=== PATIENT | female | born 1985 | race Caucasian/White ===

== ENCOUNTER 2019-03-07 17:34 | Inpatient (IN) | payer MEDICAID ==
[~2019-03-07] VITALS: Ht 160 cm; Wt 90.9 kg
[2019-03-07 18:25] LABS: HEMOGLOBIN 10.3 g/dL (12-16); MCH 28.9 pg (26.0-34.0); MCHC 32.2 g/dL (31.0-37.0); MCV 89.6 fL (80.0-100.0); MEAN PLATELET VOLUME 10.9 fL (7.4-10.4); RBC 3.57 10x6/uL (4.00-5.40); RDW 14.5 % (11.5-14.5); WBC 14.9 10x3/uL (4.8-10.8)
[2019-03-07 18:33] LABS: APPEARANCE CLEAR (CLEAR); BILIRUBIN NEGATIVE (NEGATIVE); COLOR YELLOW (YELLOW); GLUCOSE NEGATIVE (NEGATIVE); KETONE NEGATIVE (NEGATIVE); NITRITE NEGATIVE (NEGATIVE); PROTEIN NEGATIVE (NEGATIVE); UROBILINOGEN NORMAL (NORMAL)
[2019-03-07 18:36] LABS: UDS - AMPHET NEGATIVE QUAL (NEGATIVE); UDS - BARB NEGATIVE QUAL (NEGATIVE); UDS - BENZO NEGATIVE QUAL (NEGATIVE); UDS - COCAINE NEGATIVE QUAL (NEGATIVE); UDS - OPIATE NEGATIVE QUAL (NEGATIVE); UDS - PCP NEGATIVE QUAL (NEGATIVE); UDS - THC NEGATIVE QUAL (NEGATIVE)
[2019-03-07 20:29] VITALS: BP 133/88; Ht 160 cm; Wt 90.9 kg
[2019-03-08 07:08] VITALS: BP 116/56
--- NOTE | 2019-03-08 07:08 | NUR ---
RECEIVED PT SITTING UP IN BED. VISITS WITH FAMILY. VSS. HRRR WITHOUT AUDIBLE MURMUR. BBS CLEAR. BS X 4. ABDOMEN SOFT/NON-DISTENDED. FUNDUS FIRM AT U/U. RUBRA LOCHIA MOD AMT. NO CLOTS EXPRESSED. NEG HOMANS' SIGN. PPP. MILD NON-PITTING EDEMA NOTED TO BLE. EPIDURAL CATH DC'D WITH BLACK TIP INTACT. PT STATES BOTH LEGS CONTINUE NUMB ABOVE KNEES. PIV CONVERTED TO SALINE LOCK. SITE CLEAR. PT DENIES PAIN. PT INSTRUCTED TO NOTIFY NURSE OF NEED TO VOID AND NOT GET OUT OF BED WITHOUT ASSISTANCE. SR UP X 2. CALL LIGHT IN REACH.
--- NOTE | 2019-03-08 09:20 | NUR ---
PT STATES LEGS FEEL NORMAL. PT OOB AND AMB WITH STEADY GAIT TO BR. VOIDS LARGE AMT OF BLOOD-TINGED URINE. PERICARE DONE PER PT. PANTIES AND PADS ON. PT TRANSFERED VIA AMBULATORY TO ROOM 1273. PT TO BED. ORIENTED TO ROOM, BED, AND CALL LIGHT. SR UP X 2. CALL LIGHT IN REACH.
--- NOTE | 2019-03-08 10:55 | NUR ---
PT SITTING UP IN BED. VISITS WITH SO. DENIES NEEDS OR C/O.
--- NOTE | 2019-03-08 12:15 | NUR ---
PT VS NOTED. FUNDUS FIRM AT U/1. RUBRA LOCHIA MOD AMT. NO CLOTS NOTED. PT OOB AND AMB TO BR. VOIDS 300 ML OF BLOOD-TINGED URINE. PERICARE DONE PER PT. PT AMB BACK TO BED. C/O FEELING COLD. WARM BLANKET PROVIDED. PT DENIES PAIN.
[2019-03-08 12:19] VITALS: BP 132/63
--- NOTE | 2019-03-08 13:50 | NUR ---
PT SITTING UP IN BED. VISITS WITH FAMILY. DENIES NEEDS OR C/O.
--- NOTE | 2019-03-08 15:03 | NUR ---
PT LYING TO RIGHT SIDE IN BED. EYES CLOSED. RESP NON-LABORED. PT NOT DISTURBED TO ALLOW FOR REST. SR UP X 2. CALL LIGHT IN REACH.
[2019-03-08 15:54] VITALS: BP 96/55
--- NOTE | 2019-03-08 16:01 | NUR ---
PT IN SEMI-CAMPA'S POSITION. WATCHING TV. VSS. FUNDUS FIRM AT U/1. RUBRA LOCHIA SMALL AMT. PT DENIES PAIN. 600 ML OF BLOOD-TINGED URINE EMPTIED FROM SPECIPAN. PT DENIES C/O OR NEEDS.
[2019-03-08 17:00] LABS: HIV 1 & 2- RAPID SCREEN NEGATIVE (NEGATIVE)
--- NOTE | 2019-03-08 19:11 | NUR ---
BEDSIDE REPORT REC'D FROM Vicki LANE RN. PT REC'D SITTING IN HIGH FOWLERS POSITION WITH IN ARMS. REQUEST MORE FORMULA, NBN NOTIFIED. C/O ABD CRAMPING 11/04, INTERVENTIONS DISCUSSED, REQUESTS TORADOL. BED IN LOW POSITION WITH UPPER SIDE RAILS RAISED X2. CALL LIGHT AND PHONE WITHIN REACH. WILL CONTINUE TO MONITOR AND ASSIST PRN.
[2019-03-08 19:33] VITALS: BP 120/72
--- NOTE | 2019-03-08 19:33 | NUR ---
SHIFT ASSESSMENT COMPLETED PER FLOWSHEET. FUNDUS FIRM, MIDLINE AND U2 WITH SCANT RUBRA LOCHIA, NO CLOTS NOTED. C/O ABD CRAMPING /10, TORADOL GIVEN PER ORDER AND PT REQUEST. EDUCATED ON MED AND POSSIBLE SIDE EFFECTS, VERBALIZES UNDERSTANDING. REPORTS THAT SHE IS PASSING FLATUS AND VOIDING WITHOUT DIFFICULTY. INFANT IN OPEN CRIB AT BEDSIDE. DENIES ADDITIONAL NEEDS. BED IN LOW POSITION WITH UPPER SIDE RAILS RAISED X2. CALL LIGHT AND PHONE WITHIN REACH.
--- NOTE | 2019-03-08 20:10 | NUR ---
PAIN REASSESSMENT COMPLETED, DENIES PAIN. LINENS PROVIDED FOR SIGNIFICANT OTHER PER REQUEST. DENIES ADDITIONAL NEEDS. INFANT IN ARMS BOTTLE FEEDING. BED IN LOW POSITION WITH UPPER SIDE RAILS RAISED X2. CALL LIGHT AND PHONE WITHIN REACH. WILL CONTINUE TO MONITOR.
--- NOTE | 2019-03-08 21:19 | NUR ---
RT FA PIV REMOVED PER PT REQUEST. VERBALIZES AND AGREES THAT IF PIV ACCESS IS NEEDED RESTART WOULD HAVE TO BE DONE. UP TO SHOWER, TOWELS, SOAP, WASH CLOTHES, DEODORANT, TOOTHPASTE, AND MOUTH WASH PROVIDED. LINENS CHANGED. DENIES ADDITIONAL NEEDS. SIGNIFICANT OTHER IN ROOM AND STATES THAT HE WILL REMAIN IN ROOM WITH INFANT WHILE PT SHOWERS. BOTH VERBALIZE USE OF CALL LIGHT IN ROOM AND BATHROOM. DENIES NEEDS AT THIS TIME. RESTING QUIETLY IN OPEN CRIB. WILL CONTINUE TO MONITOR.
--- NOTE | 2019-03-08 22:41 | NUR ---
SCHEDULED TYLENOL 1000MG GIVEN PER ORDER. STATED PAIN 2/10 TO ABD. DENIES ANY OTHER NEEDS
--- NOTE | 2019-03-08 23:19 | NUR ---
WALKING IN HALLWAY. ASKED IF SHE COULD GO SMOKE. INFORMED PT. THAT MD DOES NOT WANT PATIENTS LEAVING UNIT TO SMOKE. PT. STATES UNDERSTANDING. STATES SHE IS TRYING TO QUIT. STATES BABY WILL PROBABLY NOT BE DISCHARGED UNTIL MONDAY. INFORMED PT. THAT SHE POSSIBLY COULD BE DISCHARGED AND CHANGED TO ROOMING IN STATUS IF SHE DESIRED AND TO DISCUSS WITH MD. GAIT STEADY. STATES SHE IS TIRED OF JUST LAYING AROUND.
--- NOTE | 2019-03-09 00:54 | NUR ---
SITTING ON EDGE OF BED PLAYING GAME ON CELL PHONE. DENIES PAIN. DISCUSSED NICOTINE PATCH WITH PT, REFUSES, STATES THAT SHE IS TRYING TO QUIT SMOKING. TOBACCO CESSATION AND QUITLINE INFO DISCUSSED WITH PT, VERBALIZES UNDERSTANDING. INFANT IN OPEN CRIB AT BEDSIDE. DENIES NEEDS. BED IN LOW POSITION WITH UPPER SIDE RAILS RAISED X2. CALL LIGHT AND PHONE WITHIN REACH. WILL CONTINUE TO MONITOR. REPORTS THAT SHE IS INTERESTED IN ROOMING IN TOMORROW, ENCOURAGED TO DISCUSS WITH .
--- NOTE | 2019-03-09 02:21 | NUR ---
ROUNDS MADE. INFANT RESTING QUIETLY IN OPEN CRIB. PT SITTING UP IN BED COLORING. DENIES PAIN. ICE WATER PROVIDED. DENIES ADDITIONAL NEEDS. SIGNIFICANT OTHER RESTING ON COUCH AT BEDSIDE. BED IN LOW POSITION WITH UPPER SIDE RAILS RAISED X2. CALL LIGHT AND PHONE WITHIN REACH.
--- NOTE | 2019-03-09 04:25 | NUR ---
SITTING UP IN BED COLORING. RESTING IN OPEN CRIB. SCHEDULED TYLENOL OFFERED AND REFUSED. STATES "I'M NOT HURTING. IF I NEED IT LATER CAN I GET?" PT INSTRUCTED THAT IF SHE NEEDED MED TO ASK FOR IT AND IT COULD BE TAKEN WHEN SHE NEEDED AND WAS AVAILABLE TO BE TAKEN Q 6 HOURS, VERBALIZES UNDERSTANDING. DENIES NEEDS. SIGNIFICANT OTHER RESTING ON COUCH. BED IN LOW POSITION WITH UPPER SIDE RAILS RAISED X2. CALL LIGHT AND PHONE WITHIN REACH. WILL CONTINUE TO MONITOR.
--- NOTE | 2019-03-09 05:46 | NUR ---
RESTING QUIETLY WITH EYE CLOSED LAYING ON LEFT SIDE. RESPIRATIONS REGULAR AND UNLABORED, NO S/S OF DISTRESS NOTE. SIGNIFICANT OTHER RESTING ON COUCH. IN NBN. BED IN LOW POSITION WITH UPPER SIDE RAILS RAISED X2. CALL LIGHT AND PHONE WITHIN REACH. WILL CONTINUE TO MONITOR.
[2019-03-09 06:09] LABS: RAPID PLASMA REAGIN Non Reactive (Non Reactive)
[2019-03-09 06:41] LABS: BASOPHILS 0.1 % (0-2); EOSINOPHILS 2.4 % (0-7); HEMATOCRIT 30.5 % (36.0-48.0); HEMOGLOBIN 9.7 g/dL (12-16); IMMATURE GRANULOCYTES 0.4 % (0-5); LYMPHOCYTES 17.6 % (15-50); MCH 28.6 pg (26.0-34.0); MCHC 31.8 g/dL (31.0-37.0); MEAN PLATELET VOLUME 10.9 fL (7.4-10.4); NEUTROPHILS 73.5 % (40-80); PLATELET COUNT 225 10x3/uL (130-400); RBC 3.39 10x6/uL (4.00-5.40); RDW 14.6 % (11.5-14.5); WBC 14.9 10x3/uL (4.8-10.8)
[2019-03-09 07:03] VITALS: BP 127/70
--- NOTE | 2019-03-09 07:05 | NUR ---
PT AAOX4, VSS, AFEBRILE, SITTING UP IN BED, ACTIVE, RATES PAIN A 1/10 MILD CRAMPING INTERMITTENTLY, HEART RRR, LUNGS CTAB, ABD SOFT AND MILDLY TENDER, FUNDUS FIRM AT U/2 AND MIDLINE, +FLATUS, NO BM YET, VOIDING WITHOUT DIFFICULTY, MALDONADO FREELY, NEGATIVE KAMINI'S SIGN, PEDAL PULSES 2+/= BILATERALLY, CALL LIGHT IN EASY REACH, BED IN LOW POSITION, SIGNIFICANT OTHER AT BS, IN ROLLING CRIB ALSO NAD. WILL MONITOR.
[2019-03-09 08:10] LABS: HEPATITIS C ANTIBODY 0.2 S/CO RAT (0.0-0.9)
--- NOTE | 2019-03-09 08:30 | NUR ---
ROUNDS COMPLETED, NO DISTRESS NOTED, CONTINUE TO MONITOR.
--- NOTE | 2019-03-09 09:05 | NUR ---
PT DENIES NEEDS OR CONCERNS, RESP EVEN AND UNLABORED, AMBULATORY IN ROOM. CALL LIGHT AT BS.
--- NOTE | 2019-03-09 10:56 | NUR ---
PT AMBULATORY IN HALLS. PT AGREES TO TYLENOL PER MD ORDERS. ADMINISTERED WITH SIPS WATER, DISCUSSED TDAP VACCINE-REVIEWED HANDOUT, AGREES TO ADMINISTRATION AND GIVEN IN LEFT DELTOID WITH BANDAID APPLIED OVER INJECTION SITE. CUP OF WATER PROVIDED PER REQUEST. CALL LIGHT IN EASY REACH. NAD NOTED.
--- NOTE | 2019-03-09 11:48 | NUR ---
ROUNDS COMPLETED, DENIES NEEDS OR CONCERNS, CALL LIGHT IN EASY REACH, RESP EVEN AND UNLABORED, CONTINUE TO MONITOR.
[2019-03-09 12:08] LABS: RUBELLA IGG 1.16 index (Immune >0.99)
--- NOTE | 2019-03-09 12:30 | NUR ---
CASE MANAGEMENT COMPLETED CONSULT, NO NEW ORDERS/RECOMMENDATIONS, STATES THAT PT TOLD HER ALL RESOURCES IN PLACE TO MANAGE AT HOME.
--- NOTE | 2019-03-09 13:11 | MORECARE ---
CASE MANAGEMENT DISCHARGE SUMMARY PATIENT: BRIAN MCMAHON UNIT: [id number] ADM DATE: 03/07/19 AGE: 33 : 89 SEX: F ROOM/BED: D.1273 AUTHOR: DEMETRI ESCOBEDO PHYSICIAN: REFERRING PHYSICIAN: LINDSAY LOPEZ MD DATE OF SERVICE: 03/09/19 Discharge Plan Patient Name: BRIAN MCMAHON Facility: [facility]:[place] : 1985 Planned Disposition: Home Anticipated Discharge Date: 03/09/19 Discharge Date: Expected LOS: 2 Initial Reviewer: [email or web address] Initial Review Date: 03/07/2019 Generated: 03/09/19 2:11 pm Patient Name: BRIAN MCMAHON Page [id number] at 1311 All edits/amendments must be made on the electronic document DICTATION DATE: 03/09/19 1310 SHACTOR: MARIANA 03/09/19 1310 RPT#: [id number] DC DATE: STATUS: ADM IN [facility] [address] [place] [address] END OF REPORT
--- NOTE | 2019-03-09 13:15 | NUR ---
DISCHARGE INSTRUCTIONS REVIEWED WITH PT, COPIES PROVIDED FOR REFERRAL, TOBACCO QUIT LINE INFORMATION PROVIDED ALONG WITH CESSATION EDUCATION MATERIALS, CARE INSTRUCTIONS, IBUPROFEN 800MG TAB PRESCRIPTION-HARD COPY, AND SIGNS AND SYMPTOMS PAGE/MAGNET. PT STATES UNDERSTANDING OF ALL INSTRUCTIONS GIVEN. PERSONAL BELONGINGS, PT, AND TRANSFERRED TO ROOM 1221-A TO ROOMING IN STATUS AFTER PAPERWORK COMPLETED. PT DOES EXPRESS UNDERSTANDING THAT SHE OR FOB MUST STAY IN HOSPITAL AT ALL TIMES TO CARE FOR .
--- NOTE | 2019-03-09 13:18 | MORECARE ---
CASE MANAGEMENT DISCHARGE SUMMARY PATIENT: BRIAN MCMAHON UNIT: [id number] ADM DATE: 03/07/19 AGE: 33 : 89 SEX: F ROOM/BED: D.1273 AUTHOR: DEMETRI ESCOBEDO PHYSICIAN: REFERRING PHYSICIAN: LINDSAY LOPEZ MD DATE OF SERVICE: 03/09/19 Discharge Plan Patient Name: BRIAN MCMAHON [facility] [facility] 1985 Planned Disposition: Home Anticipated Discharge Date: 03/09/19 Discharge Date: Expected LOS: 2 Initial Reviewer: [email or web address] Initial Review Date: 03/07/2019 Generated: 03/09/19 2:18 pm DCPIA - Discharge Planning Initial Assessment Updated by [email or web address]: Neela Negro on 03/09/19 1:13 pm * Is the patient Alert and Oriented? Yes * How many steps to enter\exit or inside your home? 3 w/ rail * PCP NO PCP * Pharmacy [facility] [place] * Preadmission Environment Home with Family * ADLs Independent * Equipment None * Other Equipment N/A * List name and contact numbers for known caregivers / representatives who currently or will assist patient after discharge: BONNIE MCMAHON - [facility]- [phone] * Verbal permission to speak to the caregivers and representatives has been obtained from the patient. No * Community resources currently utilized None * Please name any agencies selected above. DENIES ANY COMMUNITY RESOURCES * Additional services required to return to the preadmission environment? No * Can the patient safely return to the preadmission environment? Yes * Has this patient been hospitalized within the prior 30 days at any hospital? No Last DP export: 03/09/19 12:11 p Patient Name: BRIAN MCMAHON Page [id number] at 1318 All edits/amendments must be made on the electronic document DICTATION DATE: 03/09/191316 CONCRETE PUMP OPERATOR: MARIANA 03/09/191316 RPT#: [id number] DC DATE: STATUS: ADM IN [facility] [address] [place] [address] END OF REPORT
--- NOTE | 2019-03-09 13:40 | MORECARE ---
CASE MANAGEMENT DISCHARGE SUMMARY PATIENT: BRIAN MCMAHON UNIT: [id number] ADM DATE: 03/07/19 AGE: 33 : 89 SEX: F ROOM/BED: D.1273 AUTHOR: FANNY,DOC PHYSICIAN: REFERRING PHYSICIAN: LINDSAY LOPEZ MD DATE OF SERVICE: 03/09/19 Discharge Plan Patient Name: BRIAN MCMAHON Facility: [facility]:[place] : 1985 Planned Disposition: Home Anticipated Discharge Date: 03/09/19 Discharge Date: 03/09/2019 Expected LOS: 2 Initial Reviewer: [email or web address] Initial Review Date: 03/07/2019 Generated: 03/09/19 2:39 pm Comments DCP- Discharge Planning Updated by [email or web address]: Neela Negro on 03/09/19 12:[address] CASE MANGEMENT CONSULT ORDERED 03/08/19 EARLY AM. CM RECEIVED TELEPHONE CALL PATIENT HAD NOT BEEN SEEN BY THIS AM. CM WENT TO VISIT WITH THE MOM IN THE ROOM. A RAND TACKER WAS AT THE BEDSIDE. INFANT WAS ALSO AT THE BEDSIDE. THE PATIENT GAVE THE STUDENT PERMISSION TO STAY DURING THE ASSESSMENT. CM EXPLAINED MY ROLE AND THE REASON FOR THE VISIT. SHE GAVE PERMISSION TO PROCEED WITH ASSESSMENT. THE PATIENT IS DISCHARGED TODAY. THE BABY WILL BE STAYING UNTIL TOMORROW. THE MOTHER STATED YES TO QUESTION IF SHE WAS ROOMING IN. SHE IS WITH A FOUR YEAR OLD DAUGHTER. SHE STATES THE DAUGHTER IS HAPPY ABOUT HER BABY BROTHER. SHE STATES SHE WILL BE ABLE TO GET THE NECESSARY SUPPLIES. HER SISTER IN LAW HAS 2 BOYS AND SHE WILL BE ASSISTING W/ SUPPLIES AND CLOTHING. SHE STATES HER MOTHER IN LAW IS ALSO VERY SUPPORTIVE AND WILL HELP NEEDED. THE PATIENT WILL BE APPLYING FOR WIC. CM QUESTIONED WHY SHE HAD NOT SOUGHT MEDICAL CARE PRIOR TO DELIVERY. SHE STATED SHE HAD BEEN IN [place] WITH HER MOTHER AND JUST RETURNED RECENTLY. THEN SHE STATED SHE RETURNED ON MONDAY. STATED SHE HAD A MENSES UNTIL JANUARY. STATED SHE THOUGHT SHE WAS LESS THAN SHE WAS. WAS LIGHTED HEARTED. NO STRESS OR DEPRESSIVE SYMPTOMS NOTED BY CM DURING THE INTERVIEW. SHE STATES SHE WILL HAVE TRANSPORTATION FOR HER AND THE BABY'S APPOINTMENTS. HER MOTHER IN LAW OR SISTER IN LAW WILL BE PROVIDING TRANSPORTATION TO HOME TODAY. DENIES ANY NEEDS FOR SUPPLIES, EQUIPMENT OR CLOTHING. CM ADVISED CASE MANGEMENT IS AVAILABLE SHOULD ANY CONCERN OR NEED SHOULD ARISE. CM SPOKE WITH THE L&D NURSES AND THE NURSERY NURSE. DCPIA - Discharge Planning Initial Assessment Updated by [id number]: Neeal Negro on 03/09/19 1:13 pm * Is the patient Alert and Oriented? Yes * How many steps to enter\exit or inside your home? 3 w/ rail * PCP NO PCP * [facility] [place] * Preadmission Environment Home with Family * ADLs Independent * Equipment None * Other Equipment N/A * List name and contact numbers for known caregivers / representatives who currently or will assist patient after discharge: BONNIE MCMAHON - - [phone] * Verbal permission to speak to the caregivers and representatives has been obtained from the patient. No * Community resources currently utilized None * Please name any agencies selected above. DENIES ANY COMMUNITY RESOURCES * Additional services required to return to the preadmission environment? No * Can the patient safely return to the preadmission environment? Yes * Has this patient been hospitalized within the prior 30 days at any hospital? No Last DP export: 03/09/19 12:18 p Patient Name: BRIAN MCMAHON Page [id number] at 1340 All edits/amendments must be made on the electronic document DICTATION DATE: 03/09/191338 WEIGHT INSPECTOR: MARIANA 03/09/191338 RPT#: [id number] DC DATE:03/09/19 STATUS: DIS IN [facility] [address] [place] [address] END OF REPORT
--- NOTE | 2019-03-11 13:03 | MORECARE ---
CASE MANAGEMENT DISCHARGE SUMMARY PATIENT: BRIAN MCMAHON UNIT: [id number] ADM DATE: 03/07/19 AGE: 33 : 89 SEX: F ROOM/BED: D.1273 AUTHOR: FANNY,DOC PHYSICIAN: REFERRING PHYSICIAN: LINDSAY LOPEZ MD DATE OF SERVICE: 03/11/19 Discharge Plan Patient Name: BRIAN MCMAHON Facility: [facility]:[place] : 1985 Planned Disposition: Home Anticipated Discharge Date: 03/09/19 Discharge Date: 03/09/2019 Expected LOS: 2 Initial Reviewer: [email or web address] Initial Review Date: 03/07/2019 Generated: 03/11/19 2:02 pm Comments DCP- Discharge Planning Updated by [email or web address]: Neela Negro on 03/09/19 12:[address] CASE MANGEMENT CONSULT ORDERED 03/08/19 EARLY AM. CM RECEIVED TELEPHONE CALL PATIENT HAD NOT BEEN SEEN BY THIS AM. CM WENT TO VISIT WITH THE MOM IN THE ROOM. A FABRICATOR [employer]S WAS AT THE BEDSIDE. INFANT WAS ALSO AT THE BEDSIDE. THE PATIENT GAVE THE STUDENT PERMISSION TO STAY DURING THE ASSESSMENT. CM EXPLAINED MY ROLE AND THE REASON FOR THE VISIT. SHE GAVE PERMISSION TO PROCEED WITH ASSESSMENT. THE PATIENT IS DISCHARGED TODAY. THE BABY WILL BE STAYING UNTIL TOMORROW. THE MOTHER STATED YES TO QUESTION IF SHE WAS ROOMING IN. SHE IS WITH A FOUR YEAR OLD DAUGHTER. SHE STATES THE DAUGHTER IS HAPPY ABOUT HER BABY BROTHER. SHE STATES SHE WILL BE ABLE TO GET THE NECESSARY SUPPLIES. HER SISTER IN LAW HAS 2 BOYS AND SHE WILL BE ASSISTING W/ SUPPLIES AND CLOTHING. SHE STATES HER MOTHER IN LAW IS ALSO VERY SUPPORTIVE AND WILL HELP NEEDED. THE PATIENT WILL BE APPLYING FOR WIC. CM QUESTIONED WHY SHE HAD NOT SOUGHT MEDICAL CARE PRIOR TO DELIVERY. SHE STATED SHE HAD BEEN IN [place] WITH HER MOTHER AND JUST RETURNED RECENTLY. THEN SHE STATED SHE RETURNED ON MONDAY. STATED SHE HAD A MENSES UNTIL JANUARY. STATED SHE THOUGHT SHE WAS LESS THAN SHE WAS. WAS LIGHTED HEARTED. NO STRESS OR DEPRESSIVE SYMPTOMS NOTED BY CM DURING THE INTERVIEW. SHE STATES SHE WILL HAVE TRANSPORTATION FOR HER AND THE BABY'S APPOINTMENTS. HER MOTHER IN LAW OR SISTER IN LAW WILL BE PROVIDING TRANSPORTATION TO HOME TODAY. DENIES ANY NEEDS FOR SUPPLIES, EQUIPMENT OR CLOTHING. CM ADVISED CASE MANGEMENT IS AVAILABLE SHOULD ANY CONCERN OR NEED SHOULD ARISE. CM SPOKE WITH THE L&D NURSES AND THE NURSERY NURSE. DCPIA - Discharge Planning Initial Assessment Updated by [id number]: Neela Negro on 03/09/19 1:13 pm * Is the patient Alert and Oriented? Yes * How many steps to enter\exit or inside your home? 3 w/ rail * PCP NO PCP * [facility] [place] * Preadmission Environment Home with Family * ADLs Independent * Equipment None * Other Equipment N/A * List name and contact numbers for known caregivers / representatives who currently or will assist patient after discharge: BONNIE MCMAHON - - [phone] * Verbal permission to speak to the caregivers and representatives has been obtained from the patient. No * Community resources currently utilized None * Please name any agencies selected above. DENIES ANY COMMUNITY RESOURCES * Additional services required to return to the preadmission environment? No * Can the patient safely return to the preadmission environment? Yes * Has this patient been hospitalized within the prior 30 days at any hospital? No Last DP export: 03/09/19 12:40 p Patient Name: BRIAN MCMAHON Page [phone] at 1303 All edits/amendments must be made on the electronic document DICTATION DATE: 03/11/19 1302 TAKER OFF BRAKER MACHINE: MARIANA 03/11/19 1302 RPT#: [id number] DC DATE:03/09/19 STATUS: DIS IN [address] [place] [address] END OF REPORT
[2019-03-11 15:09] LABS: HGB SOLUBILITY (SICKLE SCREEN) Negative (Negative)
== END 2019-03-09 13:15 | disposition home or self-care (01) | DRG 807 ==
LOC: D.LDO 17:34 → D.LD 19:38
PROVIDERS: ADMIT Obstetrics & Gynecology; ATTEND Obstetrics & Gynecology
PROC: 10E0XZZ Delivery of Products of Conception, External Approach (ICD-10-PCS; principal; 2019-03-08)
PROC: 0HQ9XZZ Repair Perineum Skin, External Approach (ICD-10-PCS; 2019-03-08)
DX: O99.334 Smoking (tobacco) complicating childbirth (principal); Z37.0 Single live birth; Z3A.37 37 weeks gestation of pregnancy; O70.0 First degree perineal laceration during delivery